=== PATIENT | male | born 1965 | race Hispanic/Latino ===

== ENCOUNTER → 2024-08-07 | Day surgery (SDC) | payer BC ==
[~2024-08-07] MED LIST: AMLODIPINE BESY10 MG PO; BENZONATATE100 MG PO; LIDOCAINE HCL 2% LOCAL INJ 5 ML SDV VIAL INJ ONE; MIDAZOLAM HCL 2 MG/2 ML VIAL ONE; OLMESARTAN-HCT1 EACH PO; PRAVASTATIN SOD40 MG PO; PROPOFOL IV EMULSION 10 MG/ML 20 ML VIAL ONE; TERBINAFINE HC250 MG PO
[2024-08-07] MEDS: LACTATED RINGER'S 1,000 ML ONE (12:03)
[2024-08-07 14:00] VITALS: BP 128/85; PULSE 64; RESP 16; O2SAT 98
== END | disposition home or self-care (01) ==
LOC: OR 11:36
PROVIDERS: ATTEND Internal Medicine Gastroenterology
DX: Z12.11 Encounter for screening for malignant neoplasm of colon (principal); D12.3 Benign neoplasm of transverse colon; D12.2 Benign neoplasm of ascending colon; K63.5 Polyp of colon; K64.8 Other hemorrhoids; Z01.810 Encounter for preprocedural cardiovascular examination; I10 Essential (primary) hypertension; Z79.899 Other long term (current) drug therapy
CPT/HCPCS: 45384; 45385; 93005; J2003; J2250; J2704; J7121